=== PATIENT | male | born 1950 | race Caucasian/White ===

== ENCOUNTER 2017-01-25 20:12 | Emergency (ER) | payer MEDICARE, BC ==
[2017-01-25] MEDS ORDERED: Diltiazem 25 MG/5 ML SDV IVPUSH ONE (20:33)
--- NOTE | 2017-01-25 20:37 | EDM.PDOC ---
ED HPI GENERAL MEDICAL PROBLEM - General Chief Complaint: Cardiovascular Problem Stated Complaint: HEART RACING Time Seen by Provider: 01/25/17 20:25 Source of Information: Reports: Patient, Family (spouse) History Limitations: Reports: No Limitations - History of Present Illness INITIAL COMMENTS - FREE TEXT/NARRATIVE: 67-year-old male presents to the ED due to funny feeling in his chest. No central chest pain and no dizziness lightheadedness or shortness of breath. He became aware of this at noon well eating his lunch. [place] his heart racing and skipping and jumping and on checking his blood pressure tonight found to be quite low. The monitor also revealed heart rate that was much higher than his norm. Patient takes no medications and rarely sees a physician. He is a nonsmoker and does not drink alcohol. His any energy drinks and has not been on any decongestants. Denies any street drug use. He hasn't seen a physician for many years however. Notices that he's a little more fatigued and tired than normal this afternoon and tonight. Onset: Today, Sudden Onset Date: 01/25/17 Onset Time: 12:10 Duration: Getting Worse, Waxing/Waning Location: Reports: Chest (Aware of palpitations in his chest) Quality: Reports: Other (No pain) Severity: Moderate Improves with: Reports: None Worsens with: Reports: None Context: Denies: Activity, Exercise, Lifting, Sick Contact, Trauma Associated Symptoms: Reports: Malaise, Weakness (Is tired and weak bit in his legs.). 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 (see below) (9.) - Related Data Allergies Allergy/AdvReac Type Severity Reaction Status Date / Time No Known Allergies Allergy Verified 01/25/17 20:19 Home Meds: Home Meds Diltiazem [Cardizem CD] 120 mg PO DAILY #14 cap.cd 01/26/17 [Rx] Past Medical History - Past Health History Medical/Surgical History: Denies Medical/Surgical History Social & Family History - Family History Family Medical History: Noncontributory - Tobacco Use Smoking Status *Q: Never Smoker Second Hand Smoke Exposure: No - Caffeine Use Caffeine Use: Reports: Coffee - Recreational Drug Use Recreational Drug Use: No - Living Situation & Occupation Living situation: Reports: Occupation: Employed ED ROS GENERAL - Review of Systems Review Of Systems: See Below Constitutional: Reports: No Symptoms HEENT: Reports: No Symptoms Respiratory: Reports: No Symptoms Cardiovascular: Reports: Palpitations. Denies: Chest Pain, Blood Pressure Problem, Claudication, Dyspnea on Exertion, Edema, Lightheadedness, Orthopnea, PND, Syncope Endocrine: Reports: Fatigue GI/Abdominal: Reports: No Symptoms (Just this afternoon.) : Reports: Frequency, Other (Nocturia usually 3) Musculoskeletal: Reports: No Symptoms Skin: Reports: No Symptoms Neurological: Reports: No Symptoms Psychiatric: Reports: No Symptoms Hematologic/Lymphatic: Reports: No Symptoms Immunologic: Reports: No Symptoms ED EXAM, GENERAL - Physical Exam Exam: See Below Exam Limited By: No Limitations General Appearance: Alert, WD/WN, No Apparent Distress Eye Exam: Bilateral Eye: Normal Inspection Throat/Mouth: Normal Inspection, Normal Lips, Normal Teeth, Normal Gums, Normal Oropharynx. No: Dysphagia Head: Atraumatic, Normocephalic Neck: Normal Inspection, Supple, Non-Tender, Full Range of Motion, Other (No jugular venous pulsation elevation). No: Carotid Bruit, Lymphadenopathy (L), Lymphadenopathy (R), Thyromegaly Respiratory/Chest: No Respiratory Distress, Lungs Clear, Normal Breath Sounds, No Accessory Muscle Use, Chest Non-Tender Cardiovascular: No Edema, No Gallop, No JVD, No Murmur, No Rub, Tachycardia, Irregularly Irregular. No: Normal Peripheral Pulses, Regular Rate, Rhythm, JVD (Grade up as high as 1 65/m monitor shows atrial fibrillation.) Peripheral Pulses: 1+: Posterior Tibial (L), Posterior Tibial (R), Dorsalis Pedis (L), Dorsalis Pedis (R) GI/Abdominal: Normal Bowel Sounds, Soft, Non-Tender, No Organomegaly, No Distention, Other (No surgical scars) (Male) Exam: No Hernia Back Exam: Normal Inspection, Full Range of Motion. No: CVA Tenderness (L), CVA Tenderness (R) Extremities: Normal Inspection, Normal Range of Motion, Non-Tender, No Pedal Edema, Normal Capillary Refill Neurological: Alert, Oriented, CN II-XII Intact, Normal Cognition, No Motor/ Sensory Deficits Psychiatric: Normal Affect, Normal Mood Skin Exam: Warm, Dry, Intact, Normal Color, No Rash ED CARDIOLOGY PROCEDURES - Cardioversion Time of Cardioversion: 23:28 (First attempt brought him back and this intermittent sinus rhythm with frequent runs of atrial fib. Given amiodarone 150 mg over 3 minutes. Second attempt at 23:35) Indication: Atrial Fibrillation With RVR Patient Counseled: Yes Informed Consent Obtained: Yes Preparation: IV Access, Airway Management Equipment, Supplemental Oxygen, Other (PRIVATE SECRETARY in room) Pre-Procedure Sedation: Midazolam, Propofol Cardioversion Energy: 50J Sync Mode: Biphasic Successful: Yes Number of Attempts: 2 Patient Condition Post Cardioversion: Improved Post Cardioversion EKG Reviewed: Yes (Return to regular sinus rhythm at 56 per minute.) EKG INTERPRETATION EKG Date: 01/25/17 Time: 20:20 Rhythm: A-Fib (With rate of about 1:30 to 1 65/m.) Rate (Beats/Min): 127 [place]: Normal P-Wave: Absent QRS: Other (Q waves noted in V1 and V2 suggestive of an old anteroseptal myocardial infarction.) ST-T: Depressed (ST segment depression noted V3 to be 6 and also slightly in lead 2. This represents repolarization abnormality which could mean ischemia.) QT: Normal Course - Vital Signs Last Recorded V/S: Last Vital Signs Temp 36.3 C 01/25/17 20:16 Pulse 95 01/25/17 21:09 Resp 22 H 01/26/17 00:04 BP 100/71 01/26/17 00:12 Pulse Ox 92 L 01/26/17 00:04 - Orders/Labs/Meds Orders: Active Orders 24 hr Category Date Time Status EKG 12 Lead [EKG Documentation Completion] [RC] STAT Care 01/26/17 00:06 Active EKG Documentation Completion [RC] STAT Care 01/25/17 20:33 Active Chest 1V Frontal [CR] Stat Exams 01/25/17 20:32 Taken Amiodarone In Dextrose,Iso-Osm [Nexterone in Dextrose Med 01/25/17 23:53 Active 150 MG/100 ML] 150 mg Premix Bag 1 bag IV NOW Amiodarone [Cordarone] 150 mg Med 01/26/17 00:15 Active Dextrose 5% in Water 100 ml IV .BOLUS Diltiazem 125 mg Med 01/25/17 20:45 Active Sodium Chloride 0.9% [Normal Saline] 100 ml IV ASDIRECTED Diltiazem [Cardizem CD] Med 01/26/17 01:18 Once 120 mg PO ONETIME ONE Sodium Chloride 0.9% [Normal Saline] 1,000 ml Med 01/25/17 20:45 Active IV ASDIRECTED Medication Orders Diltiazem HCl 125 mg/ Sodium (Chloride) 125 mls @ 10 mls/hr IV ASDIRECTED ALEXEY PRN Reason: 10 MG/HR Last Admin: 01/25/17 20:56 Dose: 10 mg/hr, 10 mls/hr Sodium Chloride (Normal Saline) 1,000 mls @ 100 mls/hr IV ASDIRECTED ALEXEY Last Admin: 01/25/17 20:54 Dose: 100 mls/hr Amiodarone HCl/Dextrose 150 mg (/ Premix) 100 mls @ 40 mls/hr IV NOW ONE PRN Reason: Protocol Stop: 01/26/17 02:22 Last Admin: 01/26/17 00:14 Dose: 40 mls/hr Amiodarone HCl 150 mg/ (Dextrose/Water) 103 mls @ 600 mls/hr IV .BOLUS ALEXEY Labs: Laboratory Tests 01/25/17 01/25/17 01/25/17 Range/Units 20:23 20:23 20:23 WBC 9.31 H (4.23-9.07) K/mm3 RBC 5.05 (4.63-6.08) M/mm3 Hgb 15.6 (13.7-17.5) gm/L Hct 46.1 (40.1-51.0) % MCV 91.3 (79.0-92.2) fl MCH 30.9 (25.7-32.2) pg MCHC 33.8 (32.2-35.5) g/dl RDW Std Deviation 46.8 H (35.1-43.9) fL Plt Count 234 (163-337) K/mm3 MPV 10.6 (9.4-12.3) fl Neutrophils % (Manual) 56 (40-60) % Band Neutrophils % 0 (0-10) % Lymphocytes % (Manual) 32 (20-40) % Atypical Lymphs % 0 % Monocytes % (Manual) 6 (2-10) % Eosinophils % (Manual) 4 (0.8-7.0) % Basophils % (Manual) 2 H (0.2-1.2) Platelet Estimate Adequate RBC Morph Comment Normal PT 10.0 (8.0-13.0) SECONDS INR 0.92 Sodium 141 (136-145) mEq/L Potassium 3.7 (3.5-5.1) mEq/L Chloride 105 (98-107) mEq/L Carbon Dioxide 26 (21-32) mEq/L Anion Gap 13.7 (5-15) BUN 21 H (7-18) mg/dL Creatinine 1.1 (0.7-1.3) mg/dL Est Cr Clr Drug Dosing 72.51 mL/min Estimated GFR (MDRD) > 60 (>60) mL/min BUN/Creatinine Ratio 19.1 H (14-18) Glucose 132 H (80-115) mg/dL Calcium 8.9 (8.5-10.1) mg/dL Magnesium 1.7 L (1.8-2.4) mg/dl Total Bilirubin 0.6 (0.2-1.0) mg/dL AST 20 (15-37) U/L ALT 35 (16-63) U/L Alkaline Phosphatase 85 (46-116) U/L CK-MB (CK-2) 0.5 (0-3.6) ng/ml Troponin I < 0.017 (0.00-0.056) ng/mL C-Reactive Protein 0.2 (<1.0) mg/dL B-Natriuretic Peptide (0-100) pg/mL Total Protein 7.2 (6.4-8.2) g/dl Albumin 3.7 (3.4-5.0) g/dl Globulin 3.5 gm/dL Albumin/Globulin Ratio 1.1 (1-2) TSH 3rd Generation 3.635 (0.358-3.74) uIU/mL 01/25/17 Range/Units 20:23 WBC (4.23-9.07) K/mm3 RBC (4.63-6.08) M/mm3 Hgb (13.7-17.5) gm/L Hct (40.1-51.0) % MCV (79.0-92.2) fl MCH (25.7-32.2) pg MCHC (32.2-35.5) g/dl RDW Std Deviation (35.1-43.9) fL Plt Count (163-337) K/mm3 MPV (9.4-12.3) fl Neutrophils % (Manual) (40-60) % Band Neutrophils % (0-10) % Lymphocytes % (Manual) (20-40) % Atypical Lymphs % % Monocytes % (Manual) (2-10) % Eosinophils % (Manual) (0.8-7.0) % Basophils % (Manual) (0.2-1.2) Platelet Estimate RBC Morph Comment PT (8.0-13.0) SECONDS INR Sodium (136-145) mEq/L Potassium (3.5-5.1) mEq/L Chloride (98-107) mEq/L Carbon Dioxide (21-32) mEq/L Anion Gap (5-15) BUN (7-18) mg/dL Creatinine (0.7-1.3) mg/dL Est Cr Clr Drug Dosing mL/min Estimated GFR (MDRD) (>60) mL/min BUN/Creatinine Ratio (14-18) Glucose (80-115) mg/dL Calcium (8.5-10.1) mg/dL Magnesium (1.8-2.4) mg/dl Total Bilirubin (0.2-1.0) mg/dL AST (15-37) U/L ALT (16-63) U/L Alkaline Phosphatase (46-116) U/L CK-MB (CK-2) (0-3.6) ng/ml Troponin I (0.00-0.056) ng/mL C-Reactive Protein (<1.0) mg/dL B-Natriuretic Peptide 26 (0-100) pg/mL Total Protein (6.4-8.2) g/dl Albumin (3.4-5.0) g/dl Globulin gm/dL Albumin/Globulin Ratio (1-2) TSH 3rd Generation (0.358-3.74) uIU/mL Meds: Medications Generic Name Dose Route Start Last Admin Trade Name Freq PRN Reason Stop Dose Admin Diltiazem HCl 125 mg/ Sodium 125 mls @ 10 mls/hr 01/25/17 20:45 01/25/17 20: 56 Chloride IV 10 mg/hr ASDIRECTED ALEXEY 10 mls/hr 10 MG/HR Administration Sodium Chloride 1,000 mls @ 100 mls/hr 01/25/17 20:45 01/25/17 20:54 Normal Saline IV 100 mls/hr ASDIRECTED ALEXEY Administration Amiodarone HCl/Dextrose 150 mg 100 mls @ 40 mls/hr 01/25/17 23:53 01/26/17 00 :14 / Premix IV 01/26/17 02:22 40 mls/hr NOW ONE Administration Protocol Amiodarone HCl 150 mg/ 103 mls @ 600 mls/hr 01/26/17 00:15 Dextrose/Water IV .BOLUS ALEXEY Discontinued Medications Generic Name Dose Route Start Last Admin Trade Name Freq PRN Reason Stop Dose Admin Amiodarone HCl Confirm 01/25/17 23:15 01/26/17 00:12 Cordarone Administered 01/25/17 23:16 150 mg Dose Administration 150 mg .ROUTE .STK-MED ONE Diltiazem HCl 10 mg 01/25/17 20:33 01/25/17 20:55 Diltiazem IVPUSH 01/25/17 20:34 10 mg ONETIME ONE Administration Ibutilide Fumarate 1 mg/ 60 mls @ 300 mls/hr 01/25/17 21:18 01/25/17 21:27 Sodium Chloride IV 01/25/17 21:29 300 mls/hr ONETIME ONE Administration Ibutilide Fumarate 1 mg/ 60 mls @ 300 mls/hr 01/25/17 22:06 01/25/17 22:21 Sodium Chloride IV 01/25/17 22:17 300 mls/hr ONETIME ONE Administration Lidocaine HCl Confirm 01/25/17 23:32 Xylocaine-Mpf 1% Administered 01/25/17 23:33 Dose 4 mls @ as directed .ROUTE .STK-MED ONE Magnesium Sulfate Confirm 01/25/17 23:36 Magnesium Sulfate 2 Gm In Water 50 Ml Administered 01/25/17 23:37 Dose 50 mls @ as directed .ROUTE .STK-MED ONE Sodium Chloride Confirm 01/25/17 23:36 Normal Saline Administered 01/25/17 23:37 Dose 50 mls @ as directed .ROUTE .STK-MED ONE Amiodarone HCl/Dextrose Confirm 01/25/17 23:40 Nexterone In Dextrose 150 Mg/100 Ml Administered 01/25/17 23:41 Dose 100 mls @ as directed IV .STK-MED ONE Amiodarone HCl/Dextrose Confirm 01/25/17 23:40 Nexterone In Dextrose 360 Mg/200 Ml Administered 01/25/17 23:41 Dose 360 mg in 200 mls @ as directed .ROUTE .STK-MED ONE Magnesium Sulfate/Dextrose 1 100 mls @ 100 mls/hr 01/26/17 00:00 gm/ Premix IV 01/26/17 00:59 ONETIME ONE Magnesium Sulfate Confirm 01/25/17 23:34 01/26/17 00:13 Magnesium Sulfate 50% Administered 01/25/17 23:35 1 gm Dose Administration 1 gm .ROUTE .STK-MED ONE Propofol Confirm 01/25/17 23:32 Diprivan 20 Ml Administered 01/25/17 23:33 Dose 200 mg .ROUTE .STK-MED ONE Propofol Confirm 01/25/17 23:33 Diprivan 20 Ml Administered 01/25/17 23:34 Dose 200 mg .ROUTE .STK-MED ONE - Radiology Interpretation Free Text/Narrative:: 67-year-old male presents to the ED with shortness of palpitations since dinner this afternoon. Feels tired and fatigued more than normal. No chest pain no shortness of breath no dizziness. He became aware of an irregular heartbeat and palpitations when he checked his blood pressure tonight. He also noted blood pressure be lower than normal. He is on no medications he does not drink alcohol he takes no stimulants. ECG confirms atrial fibrillation with a rapid ventricular rate of 1:30 to 1 65/m. There is some repolarization abnormalities particularly noted in V3 to V6 cannot rule out ischemia. There is Q waves in V1 and V2 suggestive of an old anteroseptal myocardial infarction as well. Plan routine labs to include cardiac markers and BNP. He will be given Cardizem I'm to milligram IV bolus then 10 mg per hour drip. Portable chest x-ray to be done. - Re-Assessments/Exams Free Text/Narrative Re-Assessment/Exam: 01/25/17 21:07 heart rate is markedly improved into the 90s for the most part. BP is 97/68. Remains in atrial fibrillation. Folate labs before considering use of Corvert to convert him back to regular rhythm. 01/25/17 21:20 his rate remains around 180 fibrillation with BP 99/72. Labs are back showing a normal white count at 9.31 normal differential hemoglobin is 15.6. Hematocrit is 46.1. Postterm 34,000. Legs are normal. Sodium was 141 potassium 3.7.105 bicarbonate 26. Anion gap is 13.7. B1 was 21. Creatinine 1.1. Glucose 132. Magnesium slightly low at 1.7. TSH 3.6635 which is normal. Plan we will proceed with Corvert 1 mg IV over 15 minutes. The Cardizem drip will be withheld were stopped during the Corvert infusion and then restarted afterwards. 01/25/17 21:45 has completed the first 1 mg dose of Corvert. Cardizem will drip will be restarted at 10 mg per hour. Current heart rate is 1 16/m BP is 107/71. 01/25/17 22:07 remains in atrial fibrillation with a rate in the 80s. This is on Cardizem drip at 10 mg per hour. BP is 110/75. We'll therefore try Corvert 1 mg once again to see if we can get him to convert to sinus rhythm. 01/25/17 22:25 second dose of Corvert has just started now. Cardiazem drip has been placed on hold. 01/25/17 22:46 second dose of Corvert has been infused. Remains in atrial fibrillation at around 100/m. We'll monitor for the next 20-30 minutes. If he fails to convert consider either admission to intensive care unit for rate control and she Cardizem converts over time versus cardioversion tonight. 01/25/17 23:14 patient has failed to convert to regular rhythm with the Corvert 1 mg IV dosing 2. We discussed cardioversion i.e. low-dose electricity to try and convert him back to regular rhythm and he has consented to this. I will therefore have PRIVATE SECRETARY calculation reviewer attend him in the ED with a view to providing sedative medication to perform the cardioversion. 01/25/17 23:49 patient was successfully cardioverted back to sinus rhythm on 2 attempts. Initial attempt at 50 J attains sinus rhythm with frequent runs of intermittent atrial fibrillation. Was obvious it will focus and as time went on he went more back into atrial fibrillation in sinus. He was therefore given amiodarone 150 mg IV over 3 minutes. IV was opened full to offset the hypotension that developed from the amiodarone. Second defibrillation it with 50 J at 2335 hrs. return to to sinus rhythm. Patient will also be given 1 mg of magnesium intravenously as a stabilizing agent as his serum magnesium was slightly low at 1.7. I am going to leave on on amiodarone drip at 60 mg per hour for an hour to to suppress irritable focus. Remains in sinus bradycardia 59 /min. BP was 95/50 . 01/26/17 00:20: Has remained in sinus bradycardia 54-58/m. Blood pressure slowly recovered. Currently 100/70. Will stop the amiodarone drip completely at this time. Plan will be a piece remained stable for the next 30 minutes he will be discharged home. Departure - Departure Time of Disposition: :19 Disposition: Home, Self-Care 01 Condition: Fair Clinical Impression: Atrial fibrillation with rapid ventricular response Prescriptions: Diltiazem [Cardizem CD] 120 mg PO DAILY #14 cap.cd Forms: ED Department Discharge Additional Instructions: Evaluation the emergency room this evening due to palpitations but she recognized started about noon yesterday. ECG confirmed atrial fibrillation of new onset with a rate as high as 165 per minute. All of the laboratory test carried out in the ED were normal. Runs of heart attack were identified. Chest x -ray was found to be within normal limits as well. Therefore because new-onset atrial fibrillation week attempted to convert to back to regular sinus rhythm with intravenous medications diltiazem and Corvert. Unfortunately neither these medications did the trick in terms of returning to regular rhythm. You are therefore underwent cardioversion which means use of electricity to convert her heart back to regular rhythm and this was successful with the use of other medications. Cause of the new onset atrial fibrillation is not clear. Causes can be multiple. Further investigations are required and I suggest she follow- up with Dr. Gentile within the next 7-10 days. You do need an echocardiogram which is an ultrasound of your heart that looks at the structural aspect of the heart. You may require further heart monitoring of the electrical activity. In the meantime I'm going to place you on a medication card resigned [id number] milligrams once daily for the next 14 days to suppress irritable focus in the left atrium that caused the atrial fibrillation today. If you feel the palpitations returned however the next 10-14 days return to the ED. First tablet is to be taken later this morning. - My Orders Last 24 Hours: My Active Orders 01/25/17 20:32 Chest 1V Frontal [CR] Stat 01/25/17 20:33 EKG Documentation Completion [RC] STAT 01/25/17 20:45 Diltiazem 125 mg Sodium Chloride 0.9% [Normal Saline] 100 ml IV ASDIRECTED Sodium Chloride 0.9% [Normal Saline] 1,000 ml IV ASDIRECTED 01/25/17 23:53 Amiodarone In Dextrose,Iso-Osm [Nexterone in Dextrose 150 MG/100 ML] 150 mg Premix Bag 1 bag IV NOW 01/26/17 00:06 EKG 12 Lead [EKG Documentation Completion] [RC] STAT 01/26/17 00:15 Amiodarone [Cordarone] 150 mg Dextrose 5% in Water 100 ml IV .BOLUS 01/26/17 01:18 Diltiazem [Cardizem CD] 120 mg PO ONETIME ONE - Assessment/Plan Last 24 Hours: My Active Orders 01/25/17 20:32 Chest 1V Frontal [CR] Stat 01/25/17 20:33 EKG Documentation Completion [RC] STAT 01/25/17 20:45 Diltiazem 125 mg Sodium Chloride 0.9% [Normal Saline] 100 ml IV ASDIRECTED Sodium Chloride 0.9% [Normal Saline] 1,000 ml IV ASDIRECTED 01/25/17 23:53 Amiodarone In Dextrose,Iso-Osm [Nexterone in Dextrose 150 MG/100 ML] 150 mg Premix Bag 1 bag IV NOW 01/26/17 00:06 EKG 12 Lead [EKG Documentation Completion] [RC] STAT 01/26/17 00:15 Amiodarone [Cordarone] 150 mg Dextrose 5% in Water 100 ml IV .BOLUS 01/26/17 01:18 Diltiazem [Cardizem CD] 120 mg PO ONETIME ONE
[2017-01-25] MEDS ORDERED: Diltiazem 125 MG in Sodium Chloride 0.9% 100 ML IV SCH (20:45)
[2017-01-25] MEDS ORDERED: Sodium Chloride 0.9% 1,000 ML IV SCH (20:45)
[2017-01-25] MEDS ORDERED: Amiodarone 150 MG/3 ML SDV ONE (23:15)
[2017-01-25] MEDS ORDERED: Lidocaine 1% 4 ML ONE (23:32)
[2017-01-25] MEDS ORDERED: Propofol 200 MG/20 ML SDV ONE ×2 (23:32→23:33)
[2017-01-25] MEDS ORDERED: Magnesium Sulfate (4.06 MEQ/ML) 1 GM/2 ML SDV ONE (23:34)
[2017-01-25] MEDS ORDERED: Magnesium Sulfate/Water 50 ML ONE (23:36)
[2017-01-25] MEDS ORDERED: Sodium Chloride 0.9% 50 ML ONE (23:36)
[2017-01-25] MEDS ORDERED: Amiodarone In Dextrose,Iso-Osm 150 MG in Premix Bag 1 BAG IV ONE ×2 (23:53)
--- NOTE | 2017-01-25 23:59 | PCM.PREANE ---
Preanesthetic Assessment - Anesthesia/Transfusion/Family Hx Anesthesia History: No Prior Anesthesia Family History of Anesthesia Reaction: No Transfusion History: No Prior Transfusion(s) - Review of Systems General: Fatigue Pulmonary: No Symptoms Cardiovascular: Other (weird feeling in chest- denies pain) Gastrointestinal: No symptoms Neurological: No Symptoms Other: Reports: None - Physical Assessment NPO Status Date: 01/25/17 NPO Status Time: 17:30 O2 Sat by Pulse Oximetry: 92 Respiratory Rate: 22 Vital Signs: Last Vital Signs Temp 97.3 F 01/25/17 20:16 Pulse 95 01/25/17 21:09 Resp 22 H 01/25/17 21:09 BP 97/68 01/25/17 21:09 Pulse Ox 92 L 01/25/17 21:09 Height: 6 ft Weight: 102.058 kg ASA Class: 2E Mental Status: Alert & Oriented x3 Airway Class: Mallampati = 1 Dentition: Reports: Broken Tooth/Teeth, Missing Tooth/Teeth Thyro-Mental Finger Breadths: 3 Mouth Opening Finger Breadths: 3 ROM/Head Extension: Full Lungs: Clear to auscultation, Normal respiratory effort Cardiovascular: Irregular Rhythm - Lab Values: Laboratory Last Values WBC 9.31 K/mm3 (4.23-9.07) H 01/25/17 20:23 RBC 5.05 M/mm3 (4.63-6.08) 01/25/17 20:23 Hgb 15.6 gm/L (13.7-17.5) 01/25/17 20:23 Hct 46.1 % (40.1-51.0) 01/25/17 20:23 MCV 91.3 fl (79.0-92.2) 01/25/17 20:23 MCH 30.9 pg (25.7-32.2) 01/25/17 20:23 MCHC 33.8 g/dl (32.2-35.5) 01/25/17 20:23 RDW Std Deviation 46.8 fL (35.1-43.9) H 01/25/17 20:23 Plt Count 234 K/mm3 (163-337) 01/25/17 20:23 MPV 10.6 fl (9.4-12.3) 01/25/17 20:23 Neutrophils % (Manual) 56 % (40-60) 01/25/17 20:23 Band Neutrophils % 0 % (0-10) 01/25/17 20:23 Lymphocytes % (Manual) 32 % (20-40) 01/25/17 20:23 Atypical Lymphs % 0 % 01/25/17 20:23 Monocytes % (Manual) 6 % (2-10) 01/25/17 20:23 Eosinophils % (Manual) 4 % (0.8-7.0) 01/25/17 20:23 Basophils % (Manual) 2 (0.2-1.2) H 01/25/17 20:23 Platelet Estimate Adequate 01/25/17 20:23 RBC Morph Comment Normal 01/25/17 20:23 PT 10.0 SECONDS (8.0-13.0) 01/25/17 20:23 INR 0.92 01/25/17 20:23 Sodium 141 mEq/L (136-145) 01/25/17 20:23 Potassium 3.7 mEq/L (3.5-5.1) 01/25/17 20:23 Chloride 105 mEq/L (98-107) 01/25/17 20:23 Carbon Dioxide 26 mEq/L (21-32) 01/25/17 20:23 Anion Gap 13.7 (5-15) 01/25/17 20:23 BUN 21 mg/dL (7-18) H 01/25/17 20:23 Creatinine 1.1 mg/dL (0.7-1.3) 01/25/17 20:23 Est Cr Clr Drug Dosing 72.51 mL/min 01/25/17 20:23 Estimated GFR (MDRD) > 60 mL/min (>60) 01/25/17 20:23 BUN/Creatinine Ratio 19.1 (14-18) H 01/25/17 20:23 Glucose 132 mg/dL (80-115) H 01/25/17 20:23 Calcium 8.9 mg/dL (8.5-10.1) 01/25/17 20:23 Magnesium 1.7 mg/dl (1.8-2.4) L 01/25/17 20:23 Total Bilirubin 0.6 mg/dL (0.2-1.0) 01/25/17 20:23 AST 20 U/L (15-37) 01/25/17 20:23 ALT 35 U/L (16-63) 01/25/17 20:23 Alkaline Phosphatase 85 U/L (46-116) 01/25/17 20:23 CK-MB (CK-2) 0.5 ng/ml (0-3.6) 01/25/17 20:23 Troponin I < 0.017 ng/mL (0.00-0.056) 01/25/17 20:23 C-Reactive Protein 0.2 mg/dL (<1.0) 01/25/17 20:23 B-Natriuretic Peptide 26 pg/mL (0-100) 01/25/17 20:23 Total Protein 7.2 g/dl (6.4-8.2) 01/25/17 20:23 Albumin 3.7 g/dl (3.4-5.0) 01/25/17 20:23 Globulin 3.5 gm/dL 01/25/17 20:23 Albumin/Globulin Ratio 1.1 (1-2) 01/25/17 20:23 TSH 3rd Generation 3.635 uIU/mL (0.358-3.74) 01/25/17 20:23 - Allergies Allergies/Adverse Reactions: Allergies Allergy/AdvReac Type Severity Reaction Status Date / Time No Known Allergies Allergy Verified 01/25/17 20:19 - Blood Blood Available: No - Acknowledgements Anesthesia Type Planned: MAC Pt an Appropriate Candidate for the Planned Anesthesia: Yes Alternatives and Risks of Anesthesia Discussed w Pt/Guardian: Yes Pt/Guardian Understands and Agrees with Anesthesia Plan: Yes PreAnesthesia Questionnaire - Past Health History Medical/Surgical History: Denies Medical/Surgical History Cardiovascular History: Reports: None Respiratory History: Reports: None - SUBSTANCE USE Smoking Status *Q: Never Smoker Tobacco Use Within Last Twelve Months: No Second Hand Smoke Exposure: No Days Per Week of Alcohol Use: 0 Recreational Drug Use History: No - HOME MEDS Home Medications: Home Meds . [No Known Home Meds] 01/25/17 [History] - CURRENT (IN HOUSE) MEDS Current Meds: Current Medications Diltiazem HCl 125 mg/ Sodium (Chloride) 125 mls @ 10 mls/hr IV ASDIRECTED ALEXEY PRN Reason: 10 MG/HR Last Admin: 01/25/17 20:56 Dose: 10 mg/hr, 10 mls/hr Sodium Chloride (Normal Saline) 1,000 mls @ 100 mls/hr IV ASDIRECTED ALEXEY Last Admin: 01/25/17 20:54 Dose: 100 mls/hr Discontinued Medications Amiodarone HCl (Cordarone) Confirm Administered Dose 150 mg .ROUTE .STK-MED ONE Stop: 01/25/17 23:16 Diltiazem HCl (Diltiazem) 10 mg IVPUSH ONETIME ONE Stop: 01/25/17 20:34 Last Admin: 01/25/17 20:55 Dose: 10 mg Ibutilide Fumarate 1 mg/ (Sodium Chloride) 60 mls @ 300 mls/hr IV ONETIME ONE Stop: 01/25/17 21:29 Last Admin: 01/25/17 21:27 Dose: 300 mls/hr Ibutilide Fumarate 1 mg/ (Sodium Chloride) 60 mls @ 300 mls/hr IV ONETIME ONE Stop: 01/25/17 22:17 Last Admin: 01/25/17 22:21 Dose: 300 mls/hr Lidocaine HCl (Xylocaine-Mpf 1%) Confirm Administered Dose 4 mls @ as directed .ROUTE .STK-MED ONE Stop: 01/25/17 23:33 Magnesium Sulfate (Magnesium Sulfate 2 Gm In Water 50 Ml) Confirm Administered Dose 50 mls @ as directed .ROUTE .STK-MED ONE Stop: 01/25/17 23:37 Sodium Chloride (Normal Saline) Confirm Administered Dose 50 mls @ as directed .ROUTE .STK-MED ONE Stop: 01/25/17 23:37 Amiodarone HCl/Dextrose (Nexterone In Dextrose 150 Mg/100 Ml) Confirm Administered Dose 100 mls @ as directed IV .STK-MED ONE Stop: 01/25/17 23:41 Amiodarone HCl/Dextrose (Nexterone In Dextrose 360 Mg/200 Ml) Confirm Administered Dose 360 mg in 200 mls @ as directed .ROUTE .STK-MED ONE Stop: 01/25/17 23:41 Magnesium Sulfate (Magnesium Sulfate 50%) Confirm Administered Dose 1 gm .ROUTE .STK-MED ONE Stop: 01/25/17 23:35 Propofol (Diprivan 20 Ml) Confirm Administered Dose 200 mg .ROUTE .STK-MED ONE Stop: 01/25/17 23:33 Propofol (Diprivan 20 Ml) Confirm Administered Dose 200 mg .ROUTE .STK-[facility] ONE Stop: 01/25/17 23:34
[2017-01-26] MEDS ORDERED: Amiodarone 150 MG in Dextrose 5% in Water 100 ML IV SCH ×2 (00:15)
[2017-01-26] MEDS ORDERED: Diltiazem 120 MG Cap.CD PO ONE (01:18)
[2017-01-26 01:41] VITALS: BP 113/78
--- NOTE | 2017-01-27 11:22 | CR ---
Chest: Portable view of the chest was obtained. Comparison: No previous chest x-ray. Heart size is normal. Mild tortuosity of the thoracic aorta is seen. Lungs are clear. No acute pulmonary vascular congestion is seen. Bony structures are grossly intact. Impression: 1. Incidental finding. Nothing acute is identified on portable chest x-ray. Diagnostic code #2
== END 2017-01-26 01:42 | disposition home or self-care (01) ==
LOC: JD.ED 20:12
DX: I48.91 Unspecified atrial fibrillation (principal); Z79.899 Other long term (current) drug therapy
CPT/HCPCS: 36415; 71010; 80053; 82553; 83735; 83880; 84443; 84484; 85025; 85610; 86140; 92960; 93005; 96361; 96365; 96366; 96375; 99285; A9270; J0282; J1742; J3475; J7030; J7040; J7050; 00410; J2704; J3490

== ENCOUNTER 2025-05-08 16:54 | Emergency (ER) | payer MEDICARE, BC ==
[2025-05-08 19:44] VITALS: BP 142/80; PULSE 78
== END 2025-05-08 19:43 | disposition home or self-care (01) ==
LOC: JD.ED 16:54
DX: S82.61XA Displaced fracture of lateral malleolus of right fibula, initial encounter for closed fracture (principal); S82.62XA Displaced fracture of lateral malleolus of left fibula, initial encounter for closed fracture; S93.491A Sprain of other ligament of right ankle, initial encounter; X50.1XXA Overexertion from prolonged static or awkward postures, initial encounter
CPT/HCPCS: 736102650; 73610-50; 99283